=== PATIENT | female | born 1965 | race Caucasian/White ===

== ENCOUNTER 2021-10-10 05:50 | Day surgery (SDC) | payer BC, SELFPAY ==
[~2021-10-10] VITALS: Ht 170.2 cm; Wt 69.4 kg
[2021-10-10 06:21] LABS: HCG,QUAL RESULT NEGATIVE (NEGATIVE)
[2021-10-10] MEDS ORDERED: OXYMETAZOLINE HCL 0.05% NASAL SPRAY NS ONE (08:42)
[2021-10-10] MEDS ORDERED: DESFLURANE 15 MIN GAS INH ONE (08:42)
[2021-10-10] MEDS ORDERED: fentaNYL CITRATE/PF 100 MCG/2 ML AMP IVP ONE (08:42)
[2021-10-10] MEDS ORDERED: HYDROmorphone 2 MG/ML VIAL IVP ONE (08:42)
[2021-10-10] MEDS ORDERED: ROCURONIUM BROMIDE 10 MG/ML (ZEMURON) IV ONE (08:42)
[2021-10-10] MEDS ORDERED: PROPOFOL 200MG/ 20ML VIAL (DIPRIVAN) IV ONE (08:42)
[2021-10-10] MEDS ORDERED: NS 1000 ML IV.SOLN IV ONE (08:42)
[2021-10-10] MEDS ORDERED: LIDOCAINE/EPI 1% 1:100000 20 ML VIAL INJ ONE (08:42)
[2021-10-10] MEDS ORDERED: SUCCINYLCHOLINE CHLORIDE 20 MG/ML(QUELICIN) IVP ONE (08:42)
[2021-10-10] MEDS ORDERED: LR 1,000 ML IV.SOLN IV ONE (08:42)
[2021-10-10] MEDS ORDERED: DEXAMETHASONE SOD PHOSPHATE 4 MG/ML VIAL IVP ONE (08:42)
[2021-10-10] MEDS ORDERED: ONDANSETRON HCL 4 MG/2 ML VIAL IVP ONE (08:42)
[2021-10-10] MEDS ORDERED: NS IRRIG SOLN 1000 ML IR ONE (08:42)
[2021-10-10] MEDS ORDERED: METOCLOPRAMIDE HCL 10 MG/2 ML VIAL IVP ONE (08:42)
[2021-10-10] MEDS ORDERED: SUGAMMADEX SODIUM 200 MG/2 ML VIAL IV ONE (08:42)
[2021-10-10] MEDS ORDERED: ACETAMINOPHEN I.V. 1000 MG 100 ML IV ONE (09:00)
[2021-10-10] MEDS ORDERED: HYDROmorphone 1 MG/ML INJ. CARTRIDGE IVP PRN ×2 (10:15)
[2021-10-10] MEDS ORDERED: ONDANSETRON HCL 4 MG/2 ML VIAL IVP PRN ×2 (10:15→11:15)
[2021-10-10] MEDS ORDERED: ACETAMINOPHEN 500 MG TABLET PO PRN (11:15)
[2021-10-10] MEDS ORDERED: HYDROcodone/ACETAMIN 5-325 MG TAB (NORCO/ VICODIN) PO PRN (11:15)
[2021-10-10] MEDS ORDERED: ONDANSETRON 4 MG ODT TAB PO PRN (11:15)
[2021-10-10 13:16] VITALS: BP_SYST 117
== END 2021-10-10 12:50 | disposition home or self-care (01) ==
LOC: SMU 05:50 → SDS 05:50
PROVIDERS: ATTEND Otolaryngology
DX: J34.2 Deviated nasal septum (principal); J34.3 Hypertrophy of nasal turbinates; J34.89 Other specified disorders of nose and nasal sinuses; Z20.822 Contact with and (suspected) exposure to COVID-19
CPT/HCPCS: 30140; 30520; 36415; 84703; 87426; 93005; J0131; J0330; J1100; J1170; J2405; J2704; J2765; J3010; J3490; J7030; J7120; U0003

== ENCOUNTER 2022-03-15 20:28 | Emergency (ER) | payer BC ==
[~2022-03-15] VITALS: Ht 170.2 cm; Wt 69.4 kg
--- NOTE | 2022-03-15 20:30 | NUR ---
Placed in room 06 . Placed on hall monitor, blood pressure machine and pulse oximeter. To gown for exam. Side rails up. Report given to MAREK KYLE
--- NOTE | 2022-03-15 20:32 | NUR ---
PT BIBA SQ 151 FROM HOME AFTER BEING FOUND DOWN ON COUCH BY NEIGHBORS. [facility] WAS 3 UPON ARRIVAL OF EMS [facility] 15. PATIENT WAS HYPOTENSIVE ON SCENE OF 72/38 AND THEN 62/33. EMS GAVE 800ML OF NORMAL SALINE AND 2 DOSES OF PUSH EPI. PATIENT IS AOX 4, AWAKE AND ALERT ANSWERING QUESTIONS APPROPRIATELY. PATIENT REPORTS SHE HAD A HEADACHE TODAY AND HAD A COUGHING SPELL. SHORTLY AFTER SHE TOOK A "SWIG" OF PROMETHAZINE WITH CODIENE. PATIENT REPORTS SHE HAS NEVER DONE THAT BEFORE. DENIES HI/SI. DENIES ANY PAIN. VSS. NO ACUTE DISTRESS NOTED
[2022-03-15 20:33] VITALS: BP_SYST 108
--- NOTE | 2022-03-15 21:04 | NUR ---
Pt in bed 6 s/p hypotension at home after "drinking a couple gulps of codeine cough syrup". Normal skin color for ethnicity. Respirations even and unlabored. Pt on teletypesetter monitor and pulse oximetry. Pt states she has moderate blurry vision.
--- NOTE | 2022-03-15 21:06 | NUR ---
Pt educated on proper and safe use of narcotic medications, and all prescriptions in general: including proper dosing and potential side effects.
[2022-03-15 21:25] LABS: BASOPHILS % (AUTO) 0.3 % (0.0-2.0); EOSINOPHILS % (AUTO) 0.5 % (0.0-4.0); HEMATOCRIT 34.2 % (36-48); HEMOGLOBIN 11.8 g/dL (12.0-16.0); LYMPHOCYTES # (AUTO) 0.2 K/uL (1.0-5.5); LYMPHOCYTES % (AUTO) 3.8 % (20.5-51.5); MEAN CORPUSCULAR HEMOGLOBIN 32 pg (27-31); MEAN CORPUSCULAR HGB CONC 34 % (32-36); MEAN CORPUSCULAR VOLUME 92 fL (79.0-98.0); MONOCYTES # (AUTO) 0.4 K/uL (0.0-1.0); MONOCYTES % (AUTO) 6.9 % (1.7-9.3); NEUTROPHILS # (AUTO) 4.7 K/uL (1.8-7.7); NEUTROPHILS % (AUTO) 88.5 % (40.0-70.0); PLATELET COUNT (AUTO) 224 K/uL (130-430); RED BLOOD CELL COUNT(AUTO) 3.72 MIL/uL (4.2-6.2); RED CELL DISTRIBUTION WIDTH 13.5 % (9.0-15.0); WHITE BLOOD COUNT (AUTO) 5.3 K/uL (4.8-10.8)
--- NOTE | 2022-03-15 21:45 | NUR ---
Pt refusing CT. MD aware. Pt contemplating leaving AMA. MD to speak to patient regarding potential AMA
[2022-03-15 21:50] VITALS: BP_SYST 105
--- NOTE | 2022-03-15 21:50 | NUR ---
MD at bedside at this time speaking with patient regarding leaving AMA. Pt made aware of risks of leaving AMA. Pt states she would still like to leave AMA.
[2022-03-15 21:58] LABS: ANION GAP 5 (5-15); CALCIUM 8.2 mg/dL (8.4-11.0); CHLORIDE 106 mmol/L (98-107); CREATININE 0.93 mg/dL (0.55-1.30); GLUCOSE 95 mg/dL (70-99); POTASSIUM 4.6 mmol/L (3.5-5.1); SODIUM SERUM 138 mmol/L (136-145); UREA NITROGEN, BLOOD 19 mg/dL (8-21)
--- NOTE | 2022-03-15 21:58 | NUR ---
Pt signed AMA form at this time, as well as RUBY THOMAS.
[2022-03-15 22:11] LABS: ALANINE AMINOTRANSFERASE 81 U/L (12-78); ASPARTATE AMINOTRANSFERASE 92 U/L (10-37); TOTAL BILIRUBIN 0.2 mg/dL (0.0-1.0)
[2022-03-15 22:23] LABS: GFR AFRICAN AMERICAN 81 mL/min (>90)
== END 2022-03-15 21:58 | disposition left against medical advice (07) ==
LOC: SED 20:28
DX: R55 Syncope and collapse (principal); R05.9 Cough, unspecified; R42 Dizziness and giddiness; Z88.6 Allergy status to analgesic agent; Z79.899 Other long term (current) drug therapy
CPT/HCPCS: 36415; 80053; 82550; 83605; 84484; 85025; 93005; 99284